=== PATIENT | male | born 1995 | race Caucasian/White ===

== ENCOUNTER 2023-05-11 10:07 | Emergency (ER) | payer MEDICAID ==
[~2023-05-11 10:07] MED LIST: Clindamycin HCl 150 MG Cap PO SCH
[2023-05-11] MEDS ORDERED: Ketorolac 30 MG/ML SDV IM ONE (11:52)
[2023-05-11] MEDS ORDERED: Acetaminophen 500 MG Tab PO ONE (11:53)
[2023-05-11] MEDS ORDERED: Clindamycin HCl 150 MG Cap PO ONE (11:53)
[2023-05-11] MEDS ORDERED: Hydrocortisone/Neomycin/Polymyxin B Otic Susp 10 ML Bottle EARRT ONE (11:56)
== END 2023-05-11 12:50 | disposition home or self-care (01) ==
LOC: JP.ED 10:07
DX: K04.7 Periapical abscess without sinus (principal); H60.92 Unspecified otitis externa, left ear; F17.210 Nicotine dependence, cigarettes, uncomplicated; Z86.16 Personal history of COVID-19
CPT/HCPCS: 96372; 99283; A9270; J1885